=== PATIENT | male | born 2000 | race Caucasian/White ===

== ENCOUNTER 2022-08-15 16:08 | Emergency (ER) | payer OTHER, SELFPAY ==
[2022-08-15 16:13] VITALS: BP 112/80; PULSE 59; RESP 16; TEMP 37.1; O2SAT 99; BMI 25.8
--- NOTE | 2022-08-15 16:37 | CT_ITS ---
[address] [address] Patient Name: RAGINI ELLER MRN: [facility]:[id number] date: 2000 Sex: M Assigned Patient Location: ER Current Patient Location: Accession/Order Number: [id number] Exam Date: 08/15/2022 17:05 Report Date: 08/15/2022 17:22 At the request of: KLAUS RODRIGUEZ Procedure: CT abdomen pelvis wo con EXAM: CT abdomen pelvis wo con HISTORY: kidney stone COMPARISON: None. TECHNIQUE: Axial CT imaging was performed through the abdomen and pelvis without intravenous contrast. Multiplanar reformats were performed. Dose reduction techniques were achieved by using automated exposure control and/or adjustment of mA and/or kV according to patient size and/or use of iterative reconstruction technique. FINDINGS: Lung bases: Lung bases are clear. No pleural effusion. GI upper: Unremarkable. Liver: Normal size and contour. Gallbladder: No significant abnormality. No cholelithiasis. Biliary system: No intra or extrahepatic biliary ductal dilatation. Spleen: Normal size. Pancreas: Unremarkable. Adrenal glands: Normal adrenal glands. Kidneys/ureters: Normal contours. No hydronephrosis. No nephrolithiasis or ureterolithiasis. Vessels: No aneurysm. Lymph Nodes: No lymphadenopathy. Small bowel: No wall thickening or dilatation. Colon: No wall thickening or dilatation. Appendix: No findings of appendicitis. Peritoneal cavity: No free fluid or pneumoperitoneum. Lower : Unremarkable. Bones: No acute bony abnormality. Soft tissues: No acute finding. Additional findings: None. IMPRESSION: Unremarkable noncontrast CT of the abdomen and pelvis. No acute abnormality. Electronically authenticated by: ANNA MARIE REYEZ Date: 08/15/2022 17:22
--- NOTE | 2022-08-15 16:39 | ED_ITS ---
HPI - Male Genitourinary General Chief complaint: Urogenital-Male Stated complaint: URINATING BLOOD Time Seen by Provider: 08/15/22 16:29 Source: patient Source comment: patient Mode of arrival: walk-in Limitations: no limitations History of Present Illness HPI Narrative: this patient noticed blood in his urine about three separate times earlier this week. Since that time the blood has gone away. He has not had any foreign bodies in the area and he has not sustained any trauma or prolonged exercise/activity. His family has a chemistry stones but he has never had a kidney stone. He has some aching in his low back but not classic kidney stone type pain. He has not had fever shakes or chills. He is not on any antibiotics. He doesn't take medicine for anything. He does not have an active family doctor. He just felt woozy and lightheaded before he was going to go for a run today. He did not have any chest pain or shortness of breath. He recently came was not the blood in the urine from several days ago but the fact that he woke into a sweat before he was going to go running today.he's not been sexually active for one year he has no discharge. No pain in his scrotum or lower abdominal area. MD Complaint: Denies testicle pain, testicle swelling or penile discharge Related Data Allergies Allergy/AdvReac Type Severity Reaction Status Date / Time No Known Drug Allergies Allergy Verified 08/15/22 16:17 [facility] Social History Smoking status: Former smoker Exam Narrative Exam Narrative: very healthy young male vital signs are noted. Moves about comfortably and is in no discomfort at this time. Constitutional Vital Signs - 24 hr 08/15/22 16:13 Temperature 98.7 F Pulse Rate [Monitor] 59 L Respiratory Rate 16 Blood Pressure [Left Arm] 112/80 H Pulse Oximetry 99 Oxygen Delivery Method Room Air [facility] Common normals: normocephalic and head/scalp atraumatic Face and sinus: normal facial exam Respiratory Common normals: normal respiratory effort and clear to auscultation bilaterally Other: Jordan sign is negative. GI Common normals: Normal to inspection, nondistended, normoactive bowel sounds present and soft to palpation Other: lower abdomen has indwelling Riley catheter. A urinalysis is obtained on her initial arrival here. Other: femoral pulse no groin masses no discomfort in his perineum Course Vital Signs Vital signs: Vital Signs Temperature 98.7 F 08/15/22 16:13 Pulse Rate 59 L 08/15/22 16:13 Respiratory Rate 16 08/15/22 16:13 Blood Pressure 112/80 H 08/15/22 16:13 Pulse Oximetry 99 08/15/22 16:13 Oxygen Delivery Method Room Air 08/15/22 16:13 Temperature 98.7 F 08/15/22 16:13 Pulse Rate 59 L 08/15/22 16:13 Respiratory Rate 16 08/15/22 16:13 Blood Pressure 112/80 H 08/15/22 16:13 Pulse Oximetry 99 08/15/22 16:13 Oxygen Delivery Method Room Air 08/15/22 16:13 MDM - Male Genitourinary MDM Narrative Medical decision making narrative: patient's urinalysis was unremarkable for blood. CT of the abdomen does not show any masses on his kidneys or obstructive phenomenon or any other acute process. I would like to follow up with primary care. Lab Data Labs: Lab Results 08/15/22 08/15/22 Range/Units 16:35 17:00 WBC 5.2 (4.0-11.0) 10^3/uL RBC 5.25 (4.70-6.10) 10^6/uL Hgb 15.9 (14.0-18.0) g/dL Hct 44.5 (42.0-54.0) % MCV 84.8 (80.0-94.0) fL MCH 30.3 (25.9-34.0) pg MCHC 35.7 H (29.9-35.2) g/dL RDW 11.7 (11.0-15.0) % Plt Count 244 (150-450) 10^3/uL MPV 9.3 L (9.5-13.5) fL Neut % (Auto) 50.7 (43.0-75.0) % Lymph % (Auto) 30.5 (20.5-60.0) % [place] % (Auto) 7.8 (1.7-12.0) % Eos % (Auto) 9.7 H (0.9-7.0) % Baso % (Auto) 1.1 (0.2-2.0) % Neut # (Auto) 2.7 (1.4-6.5) 10^3/uL Lymph # (Auto) 1.6 (1.2-3.8) 10^3/uL [place] # (Auto) 0.4 (0.3-0.8) 10^3/uL Eos # (Auto) 0.5 (0.0-0.7) 10^3/uL Baso # (Auto) 0.1 (0.0-0.1) 10^3/uL Abs Immat Gran (auto) 0.01 (0.00-0.03) 10^3/uL Imm/Tot Granulo (auto) 0.2 (0.0-0.5) % Urine Color Yellow (YELLOW) Urine Clarity Clear (CLEAR) Urine pH 6.5 (5.0-9.0) Ur Specific [place] 1.015 (1.005-1.025) Urine Protein Negative (NEG/TRACE) mg/dL Urine Glucose (UA) Negative (NEGATIVE) mg/dL Urine Ketones Negative (NEGATIVE) mg/dL Urine Occult Blood Negative (NEGATIVE) Urine Nitrite Negative (NEGATIVE) Urine Bilirubin Negative (NEGATIVE) Urine Urobilinogen 0.2 (0.2-1.0) EU/dL Ur Leukocyte Esterase Negative (NEGATIVE) Discharge Plan Discharge Chief Complaint: Urogenital-Male Clinical Impression: Hematuria Patient Disposition: Home, Self-Care Time of Disposition Decision: 17:59 Instructions: Hematuria (ED) Stand Alone Forms: Portal Instructions Referrals: Physician,Non-Staff, MD [Primary Care Provider] - 1 week Discharge Date/Time: 08/15/22 18:14
[2022-08-15 16:51] LABS: Bilirubin Urine NEGATIVE (NEGATIVE); Blood Urine NEGATIVE (NEGATIVE); Clarity Urine CLEAR (CLEAR); Color Urine YELLOW (YELLOW); Glucose Urine UA NEGATIVE (NEGATIVE); Ketones Urine NEGATIVE (NEGATIVE); Leukocyte Esterase Urine NEGATIVE (NEGATIVE); Nitrite Urine NEGATIVE (NEGATIVE); Protein Urine NEGATIVE (NEG/TRACE); Specific Gravity Urine 1.015 (1.005-1.025); Urine Microscopic Indicated NO; Urobilinogen Urine 0.2 EU/dL (0.2-1.0); pH Urine 6.5 (5.0-9.0)
[2022-08-15 17:12] LABS: Basophils Absolute Auto 0.1 10^3/uL (0.0-0.1); Basophils Percent Auto 1.1 % (0.2-2.0); Eosinophils Absolute Auto 0.5 10^3/uL (0.0-0.7); Eosinophils Percent Auto 9.7 % (0.9-7.0); Hematocrit 44.5 % (42.0-54.0); Hemoglobin 15.9 g/dL (14.0-18.0); Immature Granulocytes Abs Auto 0.01 10^3/uL (0.00-0.03); Immature Granulocytes Pct Auto 0.2 % (0.0-0.5); Lymphocytes Absolute Auto 1.6 10^3/uL (1.2-3.8); Lymphocytes Percent Auto 30.5 % (20.5-60.0); Mean Corpuscular HGB Conc 35.7 g/dL (29.9-35.2); Mean Corpuscular Hemoglobin 30.3 pg (25.9-34.0); Mean Corpuscular Volume 84.8 fL (80.0-94.0); Mean Platelet Volume 9.3 fL (9.5-13.5); Monocytes Absolute Auto 0.4 10^3/uL (0.3-0.8); Monocytes Percent Auto 7.8 % (1.7-12.0); Neutrophils Absolute Auto 2.7 10^3/uL (1.4-6.5); Neutrophils Percent Auto 50.7 % (43.0-75.0); Platelet Count 244 10^3/uL (150-450); Red Blood Count 5.25 10^6/uL (4.70-6.10); Red Cell Distribution Width 11.7 % (11.0-15.0); White Blood Count 5.2 10^3/uL (4.0-11.0)
== END 2022-08-15 18:14 | disposition home or self-care (01) ==
PROVIDERS: Emergency Provider Emergency Medicine Emergency Medical Services
DX: R31.9 Hematuria, unspecified (principal); R42 Dizziness and giddiness; Z87.891 Personal history of nicotine dependence
CPT/HCPCS: 36415; 74176; 81003; 85025; 99285